=== PATIENT | male | born 1955 | race Caucasian/White ===

== ENCOUNTER 2021-06-17 15:22 | Emergency (ER) | payer MEDICARE ==
[2021-06-17] MEDS ORDERED: Ketorolac Tromethamine 30 MG/ML VIAL ONE (16:41)
[2021-06-17 19:18] LABS: #Basophils 0.1 10x3/uL (0.0-0.2); #Eosinphils 0.7 10x3/uL (0.0-0.5); #Neutrophils 10.4 10x3/uL (1.5-8.4); %Basophils 0.9 % (0.0-2.0); %Lymphocytes 7.7 % (18.0-47.0); %Monocytes 7.6 % (0.0-10.0); %Neutrophils 76.1 % (40.0-75.0); Hemoglobin 11.7 g/dL (13.5-17.5); Mean Corpuscular HGB CONC 33.4 g/dL (32.0-36.0); Mean Corpuscular Hemoglobin 31.8 pg (27.0-33.0); Mean Corpuscular Volume 95.1 fl (81.2-95.1); Mean Platelet Volume 10.1 fl (7.4-10.4); Platelet Count 207 10x3/uL (150-450); RBC Distribution Width 13.1 % (11.5-14.5); Red Blood Cell (RBC) Count 3.68 10x6/uL (4.32-5.72); White Blood Cell (WBC) Count 13.7 10x3/uL (3.5-10.5)
[2021-06-17 19:28] LABS: ALT (SGPT) 69 U/L (8-55); AST (SGOT) 77 U/L (5-34); Albumin 4.1 g/dL (3.4-4.8); Alkaline Phosphatase 112 U/L (40-110); Anion Gap 16 mmol/L (10-20); BUN (Urea Nitrogen) 26 mg/dL (8.4-25.7); Bilirubin, Total 0.7 mg/dL (0.2-1.2); Calc. Creatinine Clearance 0 mL/min (70-130); Carbon Dioxide 22 mmol/L (23-31); Chloride 101 mmol/L (98-107); Globulin 2.9 g/dL (2.4-3.5); Glucose 96 mg/dL (80-115); Potassium 4.3 mmol/L (3.5-5.1); Sodium 135 mmol/L (136-145)
[2021-06-17] MEDS ORDERED: HYDROcodone/Acetaminophen 10/325 mg Tablet ONE (21:52)
[2021-06-18 09:54] LABS: CEA, Serum 2.38 ng/mL (< or = 5.0)
[2021-06-18 11:11] LABS: PSA-Symptomatic (DIAGNOSTIC) 1975.13 ng/mL (0-4.0)
== END 2021-06-17 23:00 | disposition home or self-care (01) ==
LOC: CSHERS 15:22
DX: C79.82 Secondary malignant neoplasm of genital organs (principal)
CPT/HCPCS: 36415; 72170; 72193; 82378; 84153; 85025; 93005; 96372; J1885

== ENCOUNTER 2021-06-24 07:37 | Outpatient (CLI) | payer MEDICARE | END 2021-06-24 07:38 | disposition home or self-care (01) | LOC: CSHCT 07:37 | PROVIDERS: ATTEND Internal Medicine Hematology & Oncology | DX: C61 Malignant neoplasm of prostate (principal); C79.51 Secondary malignant neoplasm of bone; N28.9 Disorder of kidney and ureter, unspecified | CPT/HCPCS: 71260; 74160; 78306 ==